=== PATIENT | female | born 1960 | race Caucasian/White ===

== ENCOUNTER → 2019-10-04 13:12 | Outpatient (BNVA) | payer MEDICARE, SELFPAY | PROVIDERS: Visit Provider Podiatrist Foot & Ankle Surgery | DX: M79.671 Pain in right foot (principal); M79.672 Pain in left foot | CPT/HCPCS: 73630 ==

== ENCOUNTER 2020-05-13 14:59 | Outpatient (CLI) | payer MEDICARE, SELFPAY ==
--- NOTE | 2020-05-13 15:08 | US_ITS ---
WS: [id number] ULTRASOUND BREAST LEFT TECHNIQUE: Ultrasound left breast focused area of concern. CLINICAL INFORMATION: BREAST MASS/LUMP @ 10 OCLOCK COMPARISON: None. FINDINGS: Ultrasound left breast area of palpable concern. Ultrasound left breast at the 6:00 position. Normal underlying subcutaneous tissue. Prominent lipomatous tissue in the area of tenderness. No evidence of pathologic mass or lesion. No lesions to target for biopsy. Recommend return to annual screening [facility]. US/US breast LT limited* [id number] IMPRESSION: No suspicious lesions to target for biopsy. Normal underlying breast tissue.
== END 2020-05-13 15:00 | disposition home or self-care (01) ==
PROVIDERS: Visit Provider Nurse Practitioner Family
DX: N63.22 Unspecified lump in the left breast, upper inner quadrant (principal)
CPT/HCPCS: 76642

== ENCOUNTER 2021-01-03 18:03 | Emergency (ER) | payer MEDICARE, SELFPAY ==
[2021-01-03 18:10] VITALS: BP 172/97; PULSE 116; RESP 20; TEMP 36.3; O2SAT 95; BMI 33.6
[2021-01-03 18:18] VITALS: PULSE 125; RESP 21; O2SAT 95
--- NOTE | 2021-01-03 18:18 | W.ED.COVID ---
HPI - COVID General: Chief Complaint: COVID symptoms Stated Complaint: Covid Symptons Time Seen by Provider: 01/03/21 18:17 History of Present Illness: HPI Narrative: 60-year-old female comes in today with complaints of cough and nasal drainage. Patient reports feeling bad since Tuesday. Patient thinks she may have a contracted COVID-19. Patient did have a vaccine back in June for COVID-19 which was a [employer] vaccine. Patient appears mildly unwell but not toxic. Patient appears in no acute distress. COVID 19 common symptoms: positive productive cough, nasal congestion and nausea COVID Results: SARS-CoV-2 Antigen (Rapid) Positive (Negative) H 01/03/21 18:40 01/03/21 Review of Systems General: Reports: 10 or more systems reviewed and unremarkable except in HPI and below ENMT: Reports: nasal congestion and post nasal drip Resp: Reports: productive cough GI: Reports: nausea PFSH ED PFSH: Medical History (Updated 01/03/21 @ 19:54 by ROBIN Garcia) Anxiety Depression Heart problem Surgical History History of appendectomy History of ear surgery History of mandibular surgery Hx of cholecystectomy Hx of foot surgery Hx of tubal ligation Family History Other Heart attack Social History Smoking and tobacco status: never smoked Alcohol intake: current Alcohol intake frequency: holidays/special occasions only Current occupational status: disabled Physical Exam Const: COMMON NORMALS: no acute distress and patient oriented x3 GENERAL APPEARANCE: cooperative HENMT: COMMON NORMALS: normocephalic, TM's normal bilaterally and Normal external nose present HEAD & SCALP: normal to inspection and normocephalic NOSE: Normal external nose present TYMPANIC MEMBRANE: TM's normal bilaterally MOUTH: Normal oral and palatal mucosa present THROAT: posterior oropharynx normal and postnasal drainage Eye: GENERAL EYE: appearance normal, both eyes and all related structures Neck/C-Spine: COMMON NORMALS: full ROM Lymph: LYMPHATIC: no lymphadenopathy noted Chest: COMMONS NORMALS: normal inspection of the chest Resp: COMMON NORMALS: normal respiratory effort EFFORT & INSPECTION: Yes able to speak in complete sentences AUSCULTATION: diminished lung sounds Cardio: COMMON NORMALS: regular rate and regular rhythm RATE: regular rate RHYTHM: regular rhythm GI: COMMON NORMALS: non-tender : COMMON NORMALS: Yes no CVA tenderness BLADDER/KIDNEY EXAM: Yes no CVA tenderness Back/Pelvis: COMMON NORMALS: no CVA tenderness and thoracic and lumbar spine normal to inspection Extremity: COMMON NORMALS: normal to inspection Neuro: COMMON NORMALS: patient oriented x3 and moves all extremities Psych: COMMON NORMALS: mental status grossly normal and cooperative Skin: COMMON NORMALS: no rashes or lesions noted GENERAL SKIN EXAM: no rashes or lesions noted Course Vital Signs: Vital signs: Vital Signs Temperature 97.3 F L 01/03/21 18:10 Pulse Rate 125 H 01/03/21 18:18 Respiratory Rate 21 H 01/03/21 18:18 Blood Pressure 172/97 01/03/21 18:10 Pulse Oximetry 96 01/03/21 19:10 MDM - COVID MDM Narrative: Medical decision making narrative: Patient comes in today with complaints of cough and congestion since Tuesday. Patient has a history of COVID-19 vaccination. Patient reports persistent symptoms and increased fatigue. On exam patient has decreased breath sounds in the bases. Posterior pharyngeal nasal drainage. Skin is warm and dry. Vital signs note some mild tachycardia at 110. Pulse oxygen saturation is in the mid to upper 90s. Differential diagnosis includes COVID-19, pneumonia, viral syndrome. COVID-19 test was negative. Chest x-ray noted some mild patchy infiltrates. CBC noted a white count of 3.0. CRP was slightly elevated at 29. Clinically patient does appear to have COVID-19 pneumonia although the test is negative. We will do a send out PCR COVID-19 test. I will go ahead and cover for pneumonia with azithromycin and dexamethasone. Patient will also be given albuterol inhaler to help with shortness of breath and coughing spells. Prescriptions were written for patient. Patient will continue monitoring pulse oxygen at home. Patient reported understanding of care plan and agreed. Addendum, there was a correction in the COVID-19 test it was changed from negative to positive. Patient agreed to monoclonal antibody therapy and it will be arranged by central scheduling. Lab Data: Labs: Lab Results 09/04/21 09/04/21 09/04/21 Range/Units 18:40 18:40 18:40 WBC 3.0 L (4.0-10.0) 10^3/ uL RBC 4.96 (4.1-5.3) 10^6/u L Hgb 14.9 (11.5-15.3) g/dL Hct 45.3 (37.0-47.0) % MCV 91.3 (81-99) fl MCH 30.0 (28.0-34.0) pg MCHC 32.9 (30.0-36.0) g/dL RDW 12.5 (12.1-15.1) % Plt Count 157 (130-400) 10^3/c mm MPV 9.3 (7.4-10.4) fL Neut % (Auto) 54.4 % Lymph % (Auto) 29.0 % Dauphin % (Auto) 15.7 % Eos % (Auto) 0.3 % Baso % (Auto) 0.3 % Neut # (Auto) 1.63 L (1.8-7.7) 10^3/u L Lymph # (Auto) 0.9 (0.8-4.8) 10^3/u L Da[place]hin # (Auto) 0.5 (0.2-0.9) 10^3/u L Eos # (Auto) 0.0 (0.0-0.8) 10^3/u L Baso # (Auto) 0.0 (0.0-0.1) 10^3/u L Nucleated RBC % (a uto) 0 % Nucleated RBCs # 0.0 /100WBC Sodium 139 (136-145) mmol/L Potassium 4.2 (3.5-5.1) mmol/L Chloride 103 (98-107) mmol/L Carbon Dioxide 23 (22-29) mmol/L Anion Gap 17.2 (5-19) BUN 10 (6-20) mg/dL Creatinine 0.5 (0.5-0.9) mg/dL GFR Calculation 126.7 (90-130) mL/min Glucose 100 (65-115) mg/dL Calculated Osmolal ity 287 (285-295) mOsm/k g Calcium 8.9 (8.5-10.5) mg/dL Total Bilirubin 0.3 (0.15-1.2) mg/dL AST 64 H (0-32) U/L ALT 77 H (0-33) U/L Alkaline Phosphata se 88 (35-105) IU/L C-Reactive Protein 29.4 H (0.0-4.9) mg/L Total Protein 7.5 (6.6-8.7) g/dL Albumin 4.2 (3.5-5.2) g/dL Globulin 3.3 (1.3-4.6) g/dL SARS-CoV-2 Ag (Rap id) Positive H (Negative) COVID Results: SARS-CoV-2 Antigen (Rapid) Positive (Negative) H 01/03/21 18:40 01/03/21 Discharge Plan Discharge Patient Disposition: Home Clinical Impression: Pneumonia due to 2019 novel coronavirus Condition: Stable Prescriptions: New promethazine-DM 6.25-15 mg/5 mL syrup 5 ml PO Q6H PRN (Reason: cough) Qty: 118 RF: 0 dexamethasone 6 mg tablet 6 mg PO DAILY Qty: 5 RF: 0 azithromycin 250 mg tablet 250 mg PO DAILY 4 Days RF: 0 No Action diltiazem HCl 240 mg capsule,extended release 24hr 240 mg PO DAILY RF: 0 omeprazole 20 mg capsule,delayed release(DR/EC) 20 mg PO DAILY RF: 0 aspirin [Adult Aspirin Regimen] 81 mg tablet,delayed release (DR/EC) 81 mg PO DAILY RF: 0 nyubxbmtznu-trmmjncss-odf C-Mn PO RF: 0 calcium carbonate [Calcium 600] 600 mg calcium (1,500 mg) tablet 600 mg PO DAILY RF: 0 ascorbate calcium (vitamin C) 500 mg tablet 500 mg PO DAILY RF: 0 garlic 1,000 mg capsule 1,000 mg PO DAILY RF: 0 multivitamin with iron PO RF: 0 diazepam 5 mg tablet 5 mg PO BID PRNRF: 0 naproxen 250 mg tablet 250 mg PO BID PRNRF: 0 cbd oil as directed RF: 0 melatonin 3 mg capsule 3 mg PO DAILY RF: 0 methylprednisolone [Medrol (Fransisco)] 4 mg tablets,dose pack See Rx Instructions PO PER PKG DIR Qty: 21 RF: 0 Discharge Orders: Discharge ED (Routine); Ordered 01/03/21 Ordered By: Isidro Croft Other Ambulatory Orders: Request for MCA (Routine) Timeframe: 1 Day Facility: [facility] - Location: [facility] Ordered By: Isidro Croft Discharge Diet: Usual diet Discharge Activity: Increase activity as tolerated Patient Instructions: Viral Pneumonia (ED), Opioid Safety Activity Restrictions/Additional Instructions: Drink plenty of water. Use pulse oximetry to monitor pulse oxygen as needed for shortness of breath. If pulse oxygen is below 90% and does not raise above 90% after readjusting device, taking a deep breath and coughing, or standing up and moving around you should be reevaluated. Use albuterol inhaler 2 puffs every 4 hours as needed for cough or shortness of breath. Continue with medications as directed. Follow-up with primary care as needed. We have done a COVID-19 send out swab that will take up to 2 days for results. If those results come back positive you may qualify for monoclonal antibody therapy. Return to the ER to arrange treatment or follow-up with primary care. Return to the ER for worsening symptoms or new concerns. Coding Level of Care Code ED Derivatives Trader for Calli Fwkarri Exam Comprehensive
--- NOTE | 2021-01-03 18:23 | XRR_ITS ---
PROCEDURE INFORMATION: Exam: XR Chest Exam date and time: 01/03/2021 6:23 PM Age: 60 years old Clinical indication: Cough and fever; Additional info: Cough, fever TECHNIQUE: Imaging protocol: XR of the chest. Views: 1 view. COMPARISON: CR Cervical Spine AP/Lat* [id number] 01/28/2014 10:48 AM FINDINGS: Lungs: There are subtle hazy opacities along the peripheral margins of the lungs. Pleural spaces: Unremarkable. No pleural effusion. No pneumothorax. Heart/Mediastinum: Unremarkable. No cardiomegaly. Bones/joints: Unremarkable. XR/XR chest 1V portable [id number] IMPRESSION: Subtle hazy opacities along the peripheral margins of the lungs raise concern for pneumonia. Consider CT scan of the thorax for further evaluation as clinically warranted.
[2021-01-03] MEDS: sodium chloride 0.9% 1,000 ML 999 ML IV (18:25)
--- NOTE | 2021-01-03 18:42 | ECG_ITS ---
[facility] Test Date: 2021-01-03 Pat Name: Ana Guzman Department: Room: Gender: Female Resistor Tester: : 1960 Requested By: Isidro Harley Order Number: [id number] Reading MD: JULIA BROWN Measurements Intervals [place] Rate: 106 P: 28 [place]: 131 QRS: 55 QRSD: 86 T: 38 QT: 323 QTc: 429 Interpretive Statements SINUS TACHYCARDIA ABNORMAL RHYTHM ECG No previous ECG available for comparison Electronically Signed On 01-04-2021 15:05:23 CDT by JULIA BROWN [id number]
[2021-01-03 18:52] LABS: Basophils % 0.3 %; Eosinophils % 0.3 %; Hematocrit 45.3 % (37.0-47.0); Hemoglobin 14.9 g/dL (11.5-15.3); Lymphocytes # 0.9 10^3/uL (0.8-4.8); Mean Corpuscular HGB Conc 32.9 g/dL (30.0-36.0); Mean Corpuscular Volume 91.3 fl (81-99); Mean Platelet Volume 9.3 fL (7.4-10.4); Monocytes # 0.5 10^3/uL (0.2-0.9); Monocytes % 15.7 %; Neutrophils # 1.63 10^3/uL (1.8-7.7); Neutrophils % 54.4 %; Nucleated Red Blood Cells % 0 %; Platelet Count 157 10^3/cmm (130-400); Red Blood Count 4.96 10^6/uL (4.1-5.3); Red Cell Distribution Width 12.5 % (12.1-15.1)
[2021-01-03 19:10] VITALS: O2SAT 96
[2021-01-03 19:20] LABS: Alanine Aminotransferase 77 U/L (0-33); Albumin Level 4.2 g/dL (3.5-5.2); Alkaline Phosphatase 88 IU/L (35-105); Aspartate Amino Transferase 64 U/L (0-32); Blood Urea Nitrogen 10 mg/dL (6-20); C Reactive Protein 29.4 mg/L (0.0-4.9); Calcium 8.9 mg/dL (8.5-10.5); Carbon Dioxide 23 mmol/L (22-29); Chloride 103 mmol/L (98-107); Globulin 3.3 g/dL (1.3-4.6); Glomerular Filtration Rate 126.7 mL/min (90-130); Glucose 100 mg/dL (65-115); Osmolality Calculated 287 mOsm/kg (285-295); Sodium 139 mmol/L (136-145); Total Bilirubin 0.3 mg/dL (0.15-1.2); Total Protein 7.5 g/dL (6.6-8.7)
[2021-01-03 19:22] LABS: Anion Gap 17.2 (5-19); Potassium 4.2 mmol/L (3.5-5.1)
[2021-01-03] MEDS: dexamethasone 10 mg/mL INJ 6 MG IVP (19:37)
[2021-01-03] MEDS: azithromycin 250 mg Tablet 500 MG PO (19:46)
[2021-01-03 19:48] VITALS: PULSE 106; RESP 20; O2SAT 97
[2021-01-03 19:48] LABS: SARS Covid-2 Antigen Positive (Negative)
[2021-01-03] MEDS: albuterol 8 gm MDI 2 PUFF INHALATION (19:48)
[2021-01-03 19:52] VITALS: PULSE 115; RESP 20; O2SAT 97
[2021-01-03 19:58] LABS: Add Urine Microscopic? NO; Charge for UA Resulting for Rev
[2021-01-03 20:04] LABS: Bilirubin Urine Neg (Negative); Blood Urine Neg (Negative); Glucose Urine UA Norm (Normal); Ketones Urine Negative (Negative); Leukocyte Esterase Urine Negative (Negative); Nitrate Urine Negative (Negative); Protein Urine Neg (Negative); Urine Appearance Clear (CLEAR); Urine Color Yellow (Yellow); Urobilinogen Urine Norm (Negative); pH Urine 6.5 (5-7)
[2021-01-05 19:58] LABS: Quest SARS-CoV-2 RNA DETECTED (NOT DETECTED)
== END 2021-01-03 20:10 | disposition home or self-care (01) ==
PROVIDERS: Emergency Provider Nurse Practitioner Family
DX: U07.1 COVID-19 (principal); J12.82 Pneumonia due to coronavirus disease 2019; Z79.82 Long term (current) use of aspirin
CPT/HCPCS: 71045; 80053; 81003; 85025; 86140; 87426; 87635; 93005; 94640; 96361; 96374; 99284; J1100; J3535; J7030; Q0144

== ENCOUNTER 2021-01-06 10:19 | Outpatient (CLI) | payer MEDICARE, SELFPAY ==
[2021-01-06 10:50] VITALS: BP 126/79; PULSE 76; RESP 18; TEMP 36.6; O2SAT 94; BMI 33.6
[2021-01-06 11:15] VITALS: BP 122/75; PULSE 68; RESP 18; O2SAT 93
[2021-01-06 12:15] VITALS: BP 116/75; PULSE 66; RESP 20; TEMP 36.6; O2SAT 94
== END 2021-01-06 10:20 | disposition home or self-care (01) ==
LOC: OPS 10:23
PROVIDERS: Visit Provider Nurse Practitioner Family
DX: U07.1 COVID-19 (principal)
CPT/HCPCS: 96365

== ENCOUNTER 2022-10-05 13:59 | Emergency (ER) | payer MEDICARE, SELFPAY ==
--- NOTE | 2022-10-05 14:09 | ECG_ITS ---
[facility] Test Date: 2022-10-05 Pat Name: Ana Guzman Department: Room: Gender: Female Machine Records Units Supervisor: : 1960 Requested By: Genaro Johnson Order Number: [id number] Juice MD: Gladys Sierra M.D. Measurements Intervals [place] Rate: 82 P: 26 [place]: 133 QRS: 32 QRSD: 82 T: 41 QT: 373 QTc: 436 Interpretive Statements SINUS RHYTHM Compared to ECG 01/03/2021 18:50:21 Sinus tachycardia no longer present Electronically Signed On 10-05-2022 16:49:59 CDT by Gladys Sierra M.D. [email or web address].Intransa/store/Ov/[id number]
[2022-10-05 14:10] VITALS: BP 140/74; PULSE 84; RESP 16; TEMP 36.4; O2SAT 97; BMI 32.5
--- NOTE | 2022-10-05 14:19 | XRR_ITS ---
PROCEDURE INFORMATION: Exam: XR Chest Exam date and time: 10/05/2022 2:25 PM Age: 62 years old Clinical indication: Pain; Angina pectoris; Additional info: Chest pain TECHNIQUE: Imaging protocol: Radiologic exam of the chest. Views: 1 view. COMPARISON: CR XR chest 1V portable [id number] 01/03/2021 6:56 PM FINDINGS: Lungs: Unremarkable. No consolidation. Pleural spaces: Unremarkable. No pleural effusion. No pneumothorax. Heart/Mediastinum: Unremarkable. No cardiomegaly. Bones/joints: Unremarkable. XR/XR chest 1V portable [id number] IMPRESSION: No acute findings.
[2022-10-05 14:39] LABS: Basophils # 0.1 10^3/uL (0.0-0.1); Basophils % 0.8 %; Eosinophils # 0.2 10^3/uL (0.0-0.8); Eosinophils % 2.9 %; Hematocrit 48.4 % (37.0-47.0); Hemoglobin 15.2 g/dL (11.5-15.3); Lymphocytes # 2.2 10^3/uL (0.8-4.8); Lymphocytes % 33.4 %; Mean Corpuscular HGB Conc 31.4 g/dL (30.0-36.0); Mean Corpuscular Hemoglobin 30.8 pg (28.0-34.0); Mean Corpuscular Volume 98.2 fl (81-99); Mean Platelet Volume 9.1 fL (7.4-10.4); Monocytes # 0.8 10^3/uL (0.2-0.9); Monocytes % 11.7 %; Neutrophils # 3.34 10^3/uL (1.8-7.7); Neutrophils % 50.9 %; Nucleated Red Blood Cells % 0 %; Platelet Count 214 10^3/cmm (130-400); Red Blood Count 4.93 10^6/uL (4.1-5.3); White Blood Count 6.6 10^3/uL (4.0-10.0)
[2022-10-05 15:02] LABS: Troponin(5th) Baseline 7 ng/L (0-10)
[2022-10-05 15:04] LABS: Alanine Aminotransferase 27 U/L (0-33); Albumin Level 4.2 g/dL (3.5-5.2); Alkaline Phosphatase 79 U/L (35-105); Anion Gap 19.3 (5-19); Aspartate Amino Transferase 21 U/L (0-32); Blood Urea Nitrogen 9 mg/dL (8-23); Calcium 9.8 mg/dL (8.5-10.5); Carbon Dioxide 21 mmol/L (22-29); Chloride 102 mmol/L (98-107); Globulin 3.5 g/dL (1.3-4.6); Glomerular Filtration Rate 125.9 mL/min (90-130); Glucose 89 mg/dL (65-115); Osmolality Calculated 284 mOsm/kg (285-295); Potassium 4.3 mmol/L (3.5-5.1); Sodium 138 mmol/L (136-145); Total Bilirubin 0.4 mg/dL (0.15-1.2); Total Protein 7.7 g/dL (6.6-8.7)
[2022-10-05 15:45] VITALS: BP 138/82; PULSE 78; TEMP 36.4; O2SAT 98
--- NOTE | 2022-10-05 15:54 | W.ED.CHESTPA ---
HPI - Chest Pain General: Chief Complaint: Chest Pain Stated Complaint: chest pain Time Seen by Provider: 10/05/22 15:54 Source: patient Mode of arrival: ambulatory History of Present Illness: 62-year-old female who presents to the emergency room with complaints of chest pain began around 10:00's morning while she was at rest. States of a pressure-like sensation radiating to her jaw and into her shoulder she describes as originating in the lower chest bilaterally and somewhat the epigastric area she has not really found anything that that exacerbates or relieves it. MD complaint: chest pain Onset (ago): hour(s) Timing of current episode: episodic Prior episodes: Yes Onset: during rest Pain location: left chest, right chest and epigastric Pain radiation: jaw/teeth and left shoulder Severity: moderate Relieving factors: other (aspirin) Exacerbating factors: nothing Associated symptoms: Deny abdominal pain, diaphoresis, dyspnea, fever(s), leg edema, nausea, palpitations, sense of impending doom, syncope or vomiting Review of Systems Const: Denies: fever(s), chills, fatigue, malaise or diaphoresis ENMT: Denies: throat pain, ear or mastoid pain, nasal discharge or nasal congestion Card: Reports: chest pain; Denies: palpitations or syncope Resp: Denies: dyspnea GI: Denies: abdominal pain, nausea or vomiting : Denies: flank pain, difficulty voiding, dysuria, urinary frequency or urinary urgency Skin/Breast: Denies: rash or pruritus PFSH ED PFSH: Medical History (Updated 10/05/22 @ 16:45 by Genaro Clarke DO) Anxiety Depression Heart problem Surgical History History of appendectomy History of ear surgery History of mandibular surgery Hx of cholecystectomy Hx of foot surgery Hx of tubal ligation Family History Other Heart attack Social History Smoking and tobacco status: never smoked Alcohol intake: current Alcohol intake frequency: holidays/special occasions only Substance/Drug Use: never Current occupational status: disabled Physical Exam Const: GENERAL APPEARANCE: cooperative and comfortable ORIENTATION/CONSCIOUSNESS: Yes awake, Yes oriented to person, Yes oriented to place and Yes oriented to time HENMT: COMMON NORMALS: normocephalic, atraumatic and hearing grossly normal bilaterally HEAD & SCALP: normocephalic and atraumatic Resp: COMMON NORMALS: normal respiratory effort, No retractions, No use of accessory muscles and clear to auscultation bilaterally AUSCULTATION: clear to auscultation bilaterally Cardio: COMMON NORMALS: regular rate, regular rhythm and No murmurs present (Cardio) RATE: regular rate RHYTHM: regular rhythm GI: COMMON NORMALS: Soft to palpation and No hepatosplenomegaly present AUSCULTATION: Yes normoactive bowel sounds PALPATION: Yes Soft to palpation, No Tenderness to palpation present (GI), No Guarding due to palpation present (GI) and Yes No hepatosplenomegaly present Extremity: COMMON NORMALS: normal to inspection, capillary refill normal, no clubbing, cyanosis or edema, no calf tenderness and no pedal edema Neuro: SENSORIUM/ORIENTATION: Yes oriented to person, Yes oriented to place and Yes oriented to time Skin: COMMON NORMALS: no rashes or lesions noted GENERAL SKIN EXAM: no rashes or lesions noted Course Vital Signs: Vital signs: Vital Signs Temperature 97.6 F 10/05/22 15:45 Pulse Rate 78 10/05/22 15:45 Respiratory Rate 16 10/05/22 14:10 Blood Pressure 138/82 10/05/22 15:45 Pulse Oximetry 98 10/05/22 15:45 Oxygen Delivery Me thod Room Air 10/05/22 15:45 MDM - Chest Pain Medical Decision Making Cardiac enzymes negative EKG shows no acute changes. Continue baby aspirin daily start isosorbide mononitrate 30 mg daily and we will set up outpatient Lexiscan sestamibi stress test exhilarated avoid exertional activities and recheck with primary care after completed return to the ER if has recurrent symptoms Medical Records I reviewed the patient's medical records. Lab Data I reviewed the patient's lab results. 10/05/22 14:32 10/05/22 14:32 Radiology Impressions Chest X-Ray 10/05/22 14:19 IMPRESSION: No acute findings. Laboratory Results WBC 6.6 10^3/uL (4.0-10.0) 10/05/22 14:32 RBC 4.93 10^6/uL (4.1-5.3) 10/05/22 14:32 Hgb 15.2 g/dL (11.5-15.3) 10/05/22 14:32 Hct 48.4 % (37.0-47.0) H 10/05/22 14:32 MCV 98.2 fl (81-99) 10/05/22 14:32 MCH 30.8 pg (28.0-34.0) 10/05/22 14:32 MCHC 31.4 g/dL (30.0-36.0) 10/05/22 14:32 RDW 12.0 % (12.1-15.1) L 10/05/22 14:32 Plt Count 214 10^3/cmm (130-400) 10/05/22 14:32 MPV 9.1 fL (7.4-10.4) 10/05/22 14:32 Neut % (Auto) 50.9 % 10/05/22 14:32 Lymph % (Auto) 33.4 % 10/05/22 14:32 Johnston % (Auto) 11.7 % 10/05/22 14:32 Eos % (Auto) 2.9 % 10/05/22 14:32 Baso % (Auto) 0.8 % 10/05/22 14:32 Neut # (Auto) 3.34 10^3/uL (1.8-7.7) 10/05/22 14:32 Lymph # (Auto) 2.2 10^3/uL (0.8-4.8) 10/05/22 14:32 Johnston # (Auto) 0.8 10^3/uL (0.2-0.9) 10/05/22 14:32 Eos # (Auto) 0.2 10^3/uL (0.0-0.8) 10/05/22 14:32 Baso # (Auto) 0.1 10^3/uL (0.0-0.1) 10/05/22 14:32 Nucleated RBC % (auto) 0 % 10/05/22 14:32 Nucleated RBCs # 0.0 /100WBC 10/05/22 14:32 Sodium 138 mmol/L (136-145) 10/05/22 14:32 Potassium 4.3 mmol/L (3.5-5.1) 10/05/22 14:32 Chloride 102 mmol/L (98-107) 10/05/22 14:32 Carbon Dioxide 21 mmol/L (22-29) L 10/05/22 14:32 Anion Gap 19.3 (5-19) H 10/05/22 14:32 BUN 9 mg/dL (8-23) 10/05/22 14:32 Creatinine 0.5 mg/dL (0.5-0.9) 10/05/22 14:32 GFR Calculation 125.9 mL/min (90-130) 10/05/22 14:32 Glucose 89 mg/dL (65-115) 10/05/22 14:32 Calculated Osmolality 284 mOsm/kg (285-295) L 10/05/22 14:32 Calcium 9.8 mg/dL (8.5-10.5) 10/05/22 14:32 Total Bilirubin 0.4 mg/dL (0.15-1.2) 10/05/22 14:32 AST 21 U/L (0-32) 10/05/22 14:32 ALT 27 U/L (0-33) 10/05/22 14:32 Alkaline Phosphatase 79 U/L (35-105) 10/05/22 14:32 Troponin T Baseline 7 ng/L (0-10) 10/05/22 14:32 Troponin T 120 Minute 6.31 ng/L (0-10) 10/05/22 16:07 Total Protein 7.7 g/dL (6.6-8.7) 10/05/22 14:32 Albumin 4.2 g/dL (3.5-5.2) 10/05/22 14:32 Globulin 3.5 g/dL (1.3-4.6) 10/05/22 14:32 Discharge Plan Discharge Patient Disposition: Home Clinical Impression: Atypical chest pain Condition: Stable Prescriptions: New isosorbide mononitrate 30 mg tablet extended release 24 hr 30 mg PO DAILY Qty: 30 0RF No Action diltiazem HCl 240 mg capsule,extended release 24hr 240 mg PO DAILY omeprazole 20 mg capsule,delayed release(DR/EC) 20 mg PO DAILY aspirin [Adult Aspirin Regimen] 81 mg tablet,delayed release (DR/EC) 81 mg PO DAILY [id number] C-Mn PO calcium carbonate [Calcium 600] 600 mg calcium (1,500 mg) tablet 600 mg PO DAILY ascorbate calcium (vitamin C) 500 mg tablet 500 mg PO DAILY garlic 1,000 mg capsule 1,000 mg PO DAILY multivitamin with iron PO diazepam 5 mg tablet 5 mg PO BID PRN naproxen 250 mg tablet 250 mg PO BID PRN cbd oil as directed melatonin 3 mg capsule 3 mg PO DAILY methylprednisolone [Medrol (Fransisco)] 4 mg tablets,dose pack See Rx Instructions PO PER PKG DIR Qty: 21 0RF Rx Instructions: PO PER PKG DIR promethazine-DM 6.25-15 mg/5 mL syrup 5 ml PO Q6H PRN (Reason: cough) Qty: 118 0RF dexamethasone 6 mg tablet 6 mg PO DAILY Qty: 5 0RF Discharge Orders: Discharge ED (Routine); Ordered 10/05/22 Ordered By: Genaro Clarke Referrals: Spencer Guy DO [Primary Care Provider] - Discharge Diet: Usual diet Discharge Activity: Limit activity as instructed Patient Instructions: Opioid Safety, Pain Management Activity Restrictions/Additional Instructions: You are seen in the emergency room for episode of chest pain. Your EKG and cardiac enzymes are negative. Case management make arrangements for you to have a outpatient Lexiscan sestamibi stress test. In addition continue taking baby aspirin daily. Also start isosorbide mononitrate 30 mg once a day. Avoid any exertional activity and follow-up with your primary care doctor after the stress test is completed. Coding Level of Care Code ED Clinic Licensed Practical Nurse for Calli Presley
[2022-10-05 16:31] LABS: Troponin 5 2HR 6.31 ng/L (0-10)
--- NOTE | 2022-10-05 16:42 | ECG_ITS ---
[facility] Test Date: 2022-10-05 Pat Name: Ana Guzman Department: Room: Gender: Female Foundry Supervisor: : 1960 Requested By: Shayna Walden Order Number: [id number] Juice MD: Gladys Sierra M.D. Measurements Intervals [place] Rate: 74 P: 29 SC: 133 QRS: 43 QRSD: 80 T: 36 QT: 382 QTc: 425 Interpretive Statements SINUS RHYTHM LOW QRS VOLTAGE IN PRECORDIAL LEADS [QRS DEFLECTION < 1.0 mV IN CHEST LEADS] Compared to ECG 10/05/2022 14:09:03 Low QRS voltage now present Electronically Signed On 10-05-2022 16:51:53 CDT by Gladys Sierra M.D. [id number]
[2022-10-05 16:49] VITALS: BP 151/72; PULSE 76; RESP 16; O2SAT 96
[2022-10-05 17:02] LABS: Troponin 5 2HR Delta -0.69 ABS# (0-10)
[2022-10-05 17:09] VITALS: BP 140/94; PULSE 100; RESP 14; O2SAT 97
--- NOTE | 2022-10-06 08:31 | DCPLANNER ---
Addendum entered by Lani Cordero 11/05/22 10:20: Patient had an outpatient stress test - patient attended the test. Addendum entered by Lani Cordero 10/12/22 10:34: Patient has an outpatient stress test scheduled for Wednesday, October 26, 2022 at 9:45 Original Note: internal communications manager had message to schedule an outpatient stress test for patient. internal communications manager faxed signed order to centralized scheduling, who will call patient with appointment information.
== END 2022-10-05 17:11 | disposition home or self-care (01) ==
PROVIDERS: Physician Assistant; Emergency Provider Family Medicine; PCP Electrodiagnostic Medicine
DX: R07.89 Other chest pain (principal)
CPT/HCPCS: 36415; 71045; 80053; 84484; 85025; 93005; 99285

== ENCOUNTER 2022-10-26 09:30 | Outpatient (CLI) | payer MEDICARE, SELFPAY ==
--- NOTE | 2022-10-26 | ECG_ITS ---
[facility] Test Date: 2022-10-26 Pat Name: Ana Guzman Department: Room: Gender: Female Clinic Office Assistant: Nahomy Paredes : 1960 Requested By: Genaro Johnson Order Number: [id number] Juice MD: Delroy Morocho M.D. Interpretive Statements NAME OF STUDY: LEXISCAN SESTAMIBI STRESS TEST INDICATION: [Chest Pain, ] Procedure: At the baseline, the blood pressure was 157/96 mmHg with a heart rate of 76 bpm. The electrocardiogram showed normal sinus rhythm, normal axis with normal ST and T's. The Lexiscan was infused over a period of 20 seconds. A total of 0.4 mg of Lexiscan was infused. The stress phase was continued for a total of 5 minutes. Heart rate was at the end of stress phase was 97 bpm and a blood pressure of 126/87 mmHg. The EKG at the peak infusion revealed normal sinus rhythm with no significant ST-T wave changes. Sestamibi was injected 20 seconds after the Lexiscan infusion. Blood pressure at the end of recovery phase was 139/78 mmHg with a heart rate of 93 bpm. Conclusion: 1. Normal EKG response to Lexiscan infusion 2. No Lexiscan induced chest pain or cardiac arrhythmia. 3. Normal blood pressure and heart rate response. 4. Sestamibi/sestamibi perfusion scan pending; see separate report. Electronically Signed On 10-30-2022 14:40:29 CDT by Delroy Morocho M.D. [id number]
[2022-10-26 09:41] VITALS: BMI 32.8
--- NOTE | 2022-10-26 09:44 | NMCV_ITS ---
NM lamont perf SPECT r/s* [id number] Ana Guzman Age: 62 Gender: F : 1960 Exam Date: 10/26/2022 10:43 Ordering Phys: Genaro Clarke DO Technologist: BRADY Trujillo Exam Location: [facility] Indications: CHEST PAIN STRESS TEST [facility] IMAGE PROTOCOL Rest/Stress 1 Lexiscan Day Radiopharmaceutical Dose (mCi) Administration Site Administered by Rest: Tc-99m 10.9 IV BRADY Ibrahim Sestamibi Stress:Tc-99m 32.8 IV BRADY Ibrahim Sestamibi Rest: 26-Oct-2022 60 Discovery 630 Stress: 26-Oct-2022 30 Discovery 630 0.4mg Lexiscan. Images obtained in supine and prone position. SPECT RESULTS Technical Quality: Excellent Raw Data Analysis: Normal Image Corrections: No attenuation or motion correction applied Summed Stress Score: 2 Summed Rest Score: 0 Summed Difference Score: 2 PERFUSION FINDINGS There is a small sized area of reversible perfusion defect noted in apical lateral and inferolateral madrigal. This is consistent with small sized area of ischemia in left circumflex artery territory FUNCTIONAL RESULTS (calculated via Gated SPECT) Stress Image LV EF (%): 90 Stress EDV (mL):63 TID: 1.03 Stress ESV (mL):6 FUNCTIONAL FINDINGS: There is normal left ventricular systolic function. IMPRESSIONS 1. Small area of reversible perfusion defect noted in circumflex artery territory. 2. LV systolic function is normal Delroy Morocho MD (Electronically Signed) Final Date: 26 October 2022 17:23 S
[2022-10-26] MEDS: regadenoson 0.4 Mg/5 ml Syringe IVP (11:22)
[2022-10-26 11:35] VITALS: BP 139/78; PULSE 91
== END 2022-10-26 09:31 | disposition home or self-care (01) ==
LOC: CDL 09:31
PROVIDERS: PCP Electrodiagnostic Medicine; Visit Provider Family Medicine
DX: R07.9 Chest pain, unspecified (principal); R94.39 Abnormal result of other cardiovascular function study
CPT/HCPCS: 36415; 78452; 93017; 96374; A9500; J2785

== ENCOUNTER → 2023-01-04 14:41 | Outpatient (BNVA) | payer MEDICARE, SELFPAY | PROVIDERS: PCP Electrodiagnostic Medicine; Visit Provider Internal Medicine | DX: R07.9 Chest pain, unspecified (principal); R94.39 Abnormal result of other cardiovascular function study; I10 Essential (primary) hypertension | CPT/HCPCS: 93005; 99204 ==

== ENCOUNTER 2023-01-07 10:53 | Outpatient (CLI) | payer MEDICARE, SELFPAY ==
[2023-01-07 11:22] LABS: Basophils # 0.1 10^3/uL (0.0-0.1); Basophils % 0.9 %; Eosinophils # 0.3 10^3/uL (0.0-0.8); Eosinophils % 3.8 %; Hematocrit 41.1 % (36-47); Lymphocytes # 1.9 10^3/uL (0.8-4.8); Lymphocytes % 29.3 %; Mean Corpuscular HGB Conc 33.6 g/dL (30-55); Mean Corpuscular Hemoglobin 31.1 pg (27-33); Mean Corpuscular Volume 92.6 fl (85-98); Mean Platelet Volume 9.4 fL (7.4-10.4); Monocytes # 0.6 10^3/uL (0.2-0.9); Neutrophils # 3.74 10^3/uL (1.8-7.7); Neutrophils % 56.7 %; Nucleated Red Blood Cells % 0 %; Platelet Count 239 10^3/cmm (157-399); Red Blood Count 4.44 10^6/uL (3.85-5.65); Red Cell Distribution Width 12.6 % (12.1-15.1); White Blood Count 6.59 10^3/uL (3.29-11.43)
[2023-01-07 11:43] LABS: INR 0.95 (0.83-1.21)
[2023-01-07 11:44] LABS: Anion Gap 13.9 (5-19); Blood Urea Nitrogen 10 mg/dL (8-23); Calcium 9.4 mg/dL (8.5-10.5); Carbon Dioxide 29 mmol/L (22-29); Chloride 106 mmol/L (98-107); Glomerular Filtration Rate 125.9 mL/min (90-130); Glucose 112 mg/dL (65-115); Osmolality Calculated 298 mOsm/kg (285-295); Potassium 4.9 mmol/L (3.5-5.1); Sodium 144 mmol/L (136-145)
== END 2023-01-07 10:54 | disposition home or self-care (01) ==
LOC: LAB 10:55
PROVIDERS: PCP Electrodiagnostic Medicine; Visit Provider Internal Medicine
DX: I10 Essential (primary) hypertension (principal); R07.9 Chest pain, unspecified; R94.39 Abnormal result of other cardiovascular function study; R58 Hemorrhage, not elsewhere classified
CPT/HCPCS: 36415; 80048; 85025; 85610

== ENCOUNTER 2023-01-10 09:04 | Outpatient (CLI) | payer MEDICARE, SELFPAY ==
[2023-01-10] VITALS (29 sets, daily range): BP systolic 103–145; BP diastolic 60–90; PULSE 64–76; RESP 10–22; TEMP 36.9; O2SAT 95–98; BMI 32.1
--- NOTE | 2023-01-10 09:00 | XACV_ITS ---
Exam Room: 2 Ht: 160 cm Wt: 82 kg BSA: 1.94 m2 Gender: Female : 1960 Exam Priority: Routine Procedure(s): Procedure Description: Diagnostic procedure Procedure Description: Left Heart Catheterization Procedure Description: Left ventriculography Procedure Description: Coronary Angiography Diagnostic Cath Status: Elective Diagnostic Findings * INDICATION: Chest pain/abnormal stress test. * No significant disease noted in the Left Main, Left Anterior Descending, Right, or Circumflex coronary arteries. * Coronary angiography shows right dominance. Conclusions 1. No significant disease noted in the Left Main, Left Anterior Descending, Right, or Circumflex coronary arteries. Recommendations * Aggressive risk factor modification. * Outpatient cardiology follow up in 4 weeks. Interventional RX Recommendation: medical therapy and/or counseling Diagnostic RX Recommendation: medical therapy and/or counseling Pressures Phase:Rest AO : 175 / 91 ( 118 ) @ 11:12:00 AM 134 / 73 ( 100 ) @ 11:16:00 AM 135 / 71 ( 101 ) @ 11:16:00 AM LV : 142 / -7 / 13 @ 11:15:00 AM 133 / -13 / 10 @ 11:16:00 AM 138 / -14 / 10 @ 11:16:00 AM Valves Phase:DefaultPhase AV : 4.0 @ 10:57:55 AM 4.0 @ 10:57:55 AM AV Mean Gradient: 11.0 @ 10:57:55 AM 11.0 @ 10:57:55 AM Clinical Evaluation EBL: 5mL-10mL Procedural Details Procedure Consent Obtained. Pre-Procedure Time Out. Identified patient by full name and date of as verbalized by the patient/guarantor. Does the consent match the physician's order: Yes. Accurate & Complete Informed Consent: Yes. Inpatient/Outpatient History & Physical on Chart: Yes. If H&P is completed, is and addenduem needed: No. Visualize and Verify Site with Patient/Guarantor: N/A. Relevant Radiology Images available: Yes. The risks, benefits, and alternatives of sedation and/or procedure were discussed by physician. The patient agrees to continue. Procedure started. [facility] Clinical Fraility Score: 3: Managing Well. Speech Pathology Teacher Indications: chest pressure/abnormal stress test. Chest Pain Symptom Assessment: Typical Angina Symptoms. Cardiovascular Instability: No. Correct patient, site and procedure confirmed by cath team. PERRLA. Strong, equal hand slate handler bilaterally. Lungs clear x 5 lobes. IV Site on Arrival: 20 gauge in the right anticubital. A 20 gauge IV was started in the right anticubital using aseptic technique. IV Fluids: 0.9% NaCl at KVO. 0 mL infused prior to clinical laboratory director. Pre Procedural Pulses: bilateral dorsalis pedis was 3+. Pre Procedural Pulses: bilateral posterior tibial was 3+. Pre Procedural Pulses: bilateral radial was 3+. Oxygen started at 2liters/min via nasal canula. right groin was prepped with chloroprep then draped in the usual sterile fashion. right radial was prepped with chloroprep then draped in the usual sterile fashion. Physician notified. Baseline sample Acquired. HR: 58 BPM. Patient's family in CPRU room #3. Dr. Morocho will update at the completion of the procedure. Equipment: 5F - Radial. Cardiac Cath Pack. ACIST Manifold Kit Model BT 2000. Heparinized Saline (2 units/mL), 1000 mL bag. Inventory is [facility] 5Fr [facility]. Physician arrived. Physician scrubbed in. Immediate Pre-Procedure Time Out. Correct Patient: Yes; Correct Procedure: Yes; Correct Site: Yes; Correct Patient Position: Yes; Correct Supplies: Yes; Dried Flammable Prep: Yes; Blood Products Available: N/A;. Lidocaine 1% infiltrated to the right radial. Unable to obtain radial access. MD attempting to gain access in the Femoral artery. Lidocaine 1% infiltrated to the right groin. Arterial access obtained with micropuncture set using ultrasound guidance. A 5 cymro JL4 catheter in over the standard J wire. Multiple views taken of left coronary artery. Catheter removed over the standard J wire. A 5 cymro JR4 catheter in over the standard J wire. Multiple views taken of right coronary artery. Catheter removed over the standard J wire. EDP Sample taken: LV 142/-8,13; HR: 75 BPM; SpO2: 98%. LV gram performed in GO @ 10 mL/second for a total of 30 mL. EDP Sample taken: LV 133/-14,10; HR: 79 BPM; SpO2: 98%. Pullback taken: LV 138/-15,10; AO 134/73(100); Mean: 11mmHg, Peak to Peak: 4mmHg, SEP: 21sec/min; HR: 77 BPM; SpO2: 98%. Catheter removed over the standard J wire. A Right femoral angiogram was performed to determine safe placement of closure device. A Angio-Seal VIP ([facility]) was successful obtaining hemostatsis at the Right Femoral artery insertion site. Angioseal placed without complications. No signs or symptoms of hematoma noted. Sterile dressing applied per usual sterile fashion. Lot [id number]. Exp. 06/01/2023. Post Procedure: Pulses reassessed and unchanged. PERRLA. Strong, equal hand slate handler bilaterally. No VTE prophylaxis required. Medication's Wasted: Nitro = 50 mg. Medication's Wasted: Heparin = 1000 Units. Medication's Wasted: Other = Morphine 1 mg. Medication's Wasted: Other = Versed 1 mg. Total IV fluids: 43 mL. Post-op diagnosis: Normal coronaries. Complications: none. Estimated blood loss: 5mL-10mL. Responsiveness - Normal response to verbal stimuli; alert and oriented, PERRLA. Airway - Unaffected, no intervention required; spontaneous ventilation. Circulation: W/N/L, pulses unchanged. Nausea/Vomiting: No. Vital chart was stopped. Procedure completed. Patient transferred by bed to CPRU. Access Site Site: Right Femoral artery Sheath Size: 6 Fr Hemostasis Method: Angio-Seal VIP ([facility]) Hemostasis Success: Successful Procedure Medications Start: 9:53 AM Stop: 9:53 AM Medication: Versed Amount: 1 mg Route: I.V. Start: 9:57 AM Stop: 9:57 AM Medication: Versed Amount: 1 mg Route: I.V. Start: 10:05 AM Stop: 10:05 AM Medication: Versed Amount: 1 mg Route: I.V. Start: 10:07 AM Stop: 10:07 AM Medication: Morphine Amount: 1 mg Route: I.V. Start: 10:21 AM Stop: 10:21 AM Medication: Morphine Amount: 1 mg Route: I.V. I, the attending physician, have reviewed and verified all procedure medications. Yes, all medications given per verbal order History/Risk Factors Hypertension: Yes Dyslipidemia: No Peripheral Arterial Disease (PAD): No Myocardial Infarction ([place]): No Obesity: Yes Renal Disease: No Tobacco Use: Never Prior Interventions PCI: No CABG: No Valve Surgery: No Report Signatures Finalized by Delroy Morocho MD on 01/22/2023 02:02 PM
[2023-01-10] MEDS: aspirin 325 mg Tablet PO (09:15)
[2023-01-10] MEDS: diphenhydrAMINE 50 mg Capsule PO (09:15)
--- NOTE | 2023-01-10 09:46 | W.PM.OPSUD ---
Surgery/Procedure H&P Update DATE OF PROCEDURE: January 10, 2023 DATE H&P PERFORMED: 01/04/23 H&P UPDATE INFORMATION: I have reviewed H&P completed within last 30 days, I have examined patient prior to procedure and No changes to prior documentation PREOP DIAGNOSIS: Chest pain/abnormal stress test PRIMARY INDICATION FOR PROCEDURE: Chest pain/abnormal stress test PLANNED PROCEDURE: Operation Date: 01/10/23 10:00 Proposed Procedures p [facility] [id number],R94.39,R07.9(Left) - Delroy Morocho M.D Possible percutaneous coronary intervention PATIENT REASSESSED PRIOR TO SEDATION, WITH NO CHANGE NOTED: Yes PHYSICAL EXAM: alert, oriented x 3, clear to auscultation bilaterally and regular rate & rhythm AIRWAY EVAL/ANESTHESIA PLAN: normal airway, ASA III, Local Anesthesia, Risks, benefits & alternatives of sedation and/or procedure discussed and Patient agrees to continue as planned ADDITIONAL INFORMATION: Moderate sedation
--- NOTE | 2023-01-10 10:30 | SUR.EXTENDED ---
Received the patient back from the aquatic laborer via bed s/p Diagnostic C. Patient drowsy. Awakens to verbal stimuli. A & 0 x 3. color television console monitor placed and vital signs obtained. S/P angioseal closure to right groin. No bleeding or hematoma noted. Dressing D/I. No other assessment changes noted from pre cath assessment. Will transfer to room 105 when bed becomes available. Bedrest x 4 hours. Family at bedside. No concerns voiced at this time.
--- NOTE | 2023-01-10 13:26 | SUR.EXTENDED ---
Report called to ARTHUR Shah. Will transfer to room 105 as soon as the patient is finished with the bedpan.
--- NOTE | 2023-01-10 17:27 | PC.NURSE ---
Discharge Note Patient discharged to [home] via [w/c to POV] accompanied by [spouse]. Discharge instructions reviewed with patient and/or agricultural sales representative. Mobile pharmacy medications and/or prescriptions provided. Belongings/home medications returned.
== END 2023-01-10 17:27 | disposition home or self-care (01) ==
LOC: CCL 09:05 → CSU 12:23
PROVIDERS: PCP Electrodiagnostic Medicine; Visit Provider Internal Medicine
DX: R07.9 Chest pain, unspecified (principal); R94.39 Abnormal result of other cardiovascular function study; I10 Essential (primary) hypertension; E66.9 Obesity, unspecified; Z68.32 Body mass index [BMI] 32.0-32.9, adult; Z82.49 Family history of ischemic heart disease and other diseases of the circulatory system; Z79.82 Long term (current) use of aspirin
CPT/HCPCS: 36415; 93458; 96361; 96365; 99152; 99153; C1760; C1769; C1887; C1894; G0378; J1644; J2250; J2270; J3490; J7030; Q0163; Q9967

== ENCOUNTER 2023-01-12 20:52 | Emergency (ER) | payer MEDICARE, SELFPAY ==
[2023-01-12 21:02] VITALS: BP 155/94; PULSE 100; RESP 20; TEMP 36.6; O2SAT 97; BMI 32.2
[2023-01-12 21:30] VITALS: BP 143/83; PULSE 95; O2SAT 97
--- NOTE | 2023-01-12 21:39 | USR_ITS ---
PROCEDURE INFORMATION: Exam: US Right Non-Vascular Joint or Other Extremity Structure Exam date and time: 01/12/2023 10:03 PM Age: 62 years old Clinical indication: Thigh; Right; Patient HX: Severe RT groin pain with fever and chills S/P coronary angiogram 01/10/23. There is no palpable lump and there is no thrill. ; Additional info: Severe right groin pain sp angiogram, fever, chills TECHNIQUE: Imaging protocol: Right US joint or other nonvascular extremity structure or structures. Real-time ultrasound with image documentation. Limited study. Exam focused on the lower extremity in the region of clinical interest. COMPARISON: [place] [id number] ORTH 10/04/2019 1:16 PM FINDINGS: Soft tissues: Unremarkable. No loculated collections. Vasculature: Right common femoral, superficial femoral and popliteal veins demonstrate color blood flow, compressibility and augmentation. Right common femoral artery demonstrates color blood flow within normal triphasic wave forms. US/[place] [id number] IMPRESSION: Negative for vascular abnormality, pseudoaneurysm or arteriovenous fistula.
[2023-01-12 21:42] LABS: Basophils % 0.4 %; Eosinophils # 0.3 10^3/uL (0.0-0.8); Eosinophils % 2.6 %; Hematocrit 42.5 % (36-47); Lymphocytes # 2.4 10^3/uL (0.8-4.8); Lymphocytes % 23.9 %; Mean Corpuscular HGB Conc 32.7 g/dL (30-55); Mean Corpuscular Hemoglobin 30.9 pg (27-33); Mean Corpuscular Volume 94.4 fl (85-98); Mean Platelet Volume 10.5 fL (7.4-10.4); Monocytes % 10.2 %; Neutrophils # 6.33 10^3/uL (1.8-7.7); Neutrophils % 62.6 %; Nucleated Red Blood Cells % 0 %; Platelet Count 209 10^3/cmm (157-399); Red Cell Distribution Width 12.4 % (12.1-15.1); White Blood Count 10.11 10^3/uL (3.29-11.43)
--- NOTE | 2023-01-12 21:42 | W.ED.FEVER ---
HPI - Fever General: Chief Complaint: Fever Stated Complaint: right leg pain, fever Time Seen by Provider: 01/12/23 21:33 History of Present Illness: Patient presents to the ER with right leg pain and fever. Patient had an angiogram on Tuesday where the cannulated the artery in the right groin region. This area is very tender and the pain goes distally down to the back of her knee. The area looks good with minimal bruising however patient can barely tolerate light touching to this area. Patient also had a temperature of 100.4 today at her home. Patient had a temperature of 97.8 upon arrival here. Patient did take low-dose aspirin approximately 40 minutes ago. Patient denies any nausea vomiting diarrhea chest pain shortness of breath at this time. Review of Systems General: Reports: 10 or more systems reviewed and unremarkable except in HPI and below PFSH ED PFSH: Medical History (Updated 01/13/23 @ 01:25 by Collin Garcia DO) Anxiety Depression Heart problem Surgical History History of appendectomy History of ear surgery History of mandibular surgery Hx of cholecystectomy Hx of foot surgery Hx of tubal ligation Family History Other Heart attack Social History Smoking and tobacco status: never smoked Alcohol intake: current Alcohol intake frequency: holidays/special occasions only Substance/Drug Use: never Current occupational status: disabled Physical Exam Const: COMMON NORMALS: no acute distress, average body habitus, patient oriented x3, no limitations, healthy appearing, alert and well nourished HENMT: COMMON NORMALS: normocephalic, atraumatic, hearing grossly normal bilaterally, external ears normal, Normal external nose present and moist oral mucous membranes HEAD & SCALP: normocephalic and atraumatic NOSE: Normal external nose present EXTERNAL EAR: Yes external ears normal Eye: COMMON NORMALS: Equal, round and reactive pupils present, EOMs intact bilaterally, conjunctivae normal and no scleral icterus CONJUNCTIVA: Yes conjunctivae normal PUPIL: Yes Equal, round and reactive pupils present Neck/C-Spine: COMMON NORMALS: no JVD Lymph: LYMPHATIC: no lymphadenopathy noted Chest: COMMONS NORMALS: normal inspection of the chest and normal palpation of entire chest wall Resp: COMMON NORMALS: normal respiratory effort, No retractions, No use of accessory muscles and clear to auscultation bilaterally AUSCULTATION: clear to auscultation bilaterally Cardio: COMMON NORMALS: no JVD, regular rate, regular rhythm, S1 normal heart sound present, S2 normal heart sound present, No gallops present (Cardio), No clicks present (Cardio), No murmurs present (Cardio) and No rub (Cardio) RATE: regular rate RHYTHM: regular rhythm HEART SOUNDS: S1 normal heart sound present and S2 normal heart sound present GI: COMMON NORMALS: Normal to inspection, nondistended, normoactive bowel sounds present, Soft to palpation, non-tender, No hepatosplenomegaly present and no masses PALPATION: Yes Soft to palpation and Yes No hepatosplenomegaly present : OTHER: Bandage was removed from left groin region cath site. Externally looks good with minimal bruising. But patient is very exquisitely tender to light palpation in this area Neuro: COMMON NORMALS: patient oriented x3 SENSORIUM/ORIENTATION: Yes alert Course Vital Signs: Vital signs: Vital Signs Temperature 97.8 F 01/12/23 21:02 Pulse Rate 78 01/12/23 23:30 Respiratory Rate 20 H 01/12/23 21:02 Blood Pressure 138/72 01/12/23 23:30 Pulse Oximetry 96 01/12/23 23:30 Oxygen Delivery Me thod Room Air 01/12/23 23:30 MDM - Fever Medical Decision Making Patient presents ER today for evaluation of right leg pain and fever. Patient had angiogram on Tuesday. Has been hurting in her right groin ever since then. Ultrasound was performed of this area which was negative as well as lab work which was negative as well. Patient be discharged home with diagnosis of fever and right leg pain. Patient should follow-up with her family practice doctor in approximately 7 days or sooner as needed. Differential Diagnosis Unlikely abdominal pain, acute appendicitis, calculus of kidney, constipation, diverticulitis, endometriosis, gastroenteritis, pancreatitis or small bowel obstruction Medical Records I reviewed the patient's medical records. Lab Data I reviewed the patient's lab results. 01/12/23 21:29 01/12/23 21:29 Radiology Impressions Soft Tissue Ultrasound 01/12/23 21:39 IMPRESSION: Negative for vascular abnormality, pseudoaneurysm or arteriovenous fistula. Laboratory Results WBC 10.11 10^3/uL (3.29-11.43) 01/12/23: RBC 4.50 10^6/uL (3.85-5.65) 01/12/23 21: Hgb 13.90 g/dL (11.27-16.99) 01/12/23 21: Hct 42.5 % (36-47) 01/12/23 21: MCV 94.4 fl (85-98) 01/12/23 21: MCH 30.9 pg (27-33) 01/12/23 21: MCHC 32.7 g/dL (30-55) 01/12/23: RDW 12.4 % (12.1-15.1) 01/12/23: Plt Count 209 10^3/cmm (157-399) 01/12/23: MPV 10.5 fL (7.4-10.4) H 01/12/23 21: Neut % (Auto) 62.6 % 01/12/23 21: Lymph % (Auto) 23.9 % 01/12/23 21: Crane % (Auto) 10.2 % 01/12/23: Eos % (Auto) 2.6 % 01/12/23: Baso % (Auto) 0.4 % 01/12/23: Neut # (Auto) 6.33 10^3/uL (1.8-7.7) 01/12/23: Lymph # (Auto) 2.4 10^3/uL (0.8-4.8) 01/12/23: [place]ane # (Auto) 1.0 10^3/uL (0.2-0.9) H 01/12/23: Eos # (Auto) 0.3 10^3/uL (0.0-0.8) 01/12/23: Baso # (Auto) 0.0 10^3/uL (0.0-0.1) 01/12/23: Nucleated RBC % (auto) 0 % 01/12/23: Nucleated RBCs # 0.0 /100WBC 01/12/23 21:29 Sodium 142 mmol/L (136-145) 01/12/23 21:29 Potassium 4.2 mmol/L (3.5-5.1) 01/12/23 21: Chloride 106 mmol/L (98-107) 01/12/23 21: Carbon Dioxide 26 mmol/L (22-29) 01/12/23 21: Anion Gap 14.2 (5-19) 01/12/23 21: BUN 15 mg/dL (8-23) 01/12/23 21: Creatinine 0.5 mg/dL (0.5-0.9) 01/12/23 21: GFR Calculation 125.9 mL/min (90-130) 01/12/23 21: Glucose 102 mg/dL (65-115) 01/12/23 21: Calculated Osmolality 295 mOsm/kg (285-295) 01/12/23: Calcium 9.5 mg/dL (8.5-10.5) 01/12/23: Total Bilirubin 0.3 mg/dL (0.15-1.2) 01/12/23 21: AST 13 U/L (0-32) 01/12/23 21: ALT 17 U/L (0-33) 01/12/23 21: Alkaline Phosphatase 92 U/L (35-105) 01/12/23 21: Total Protein 7.8 g/dL (6.6-8.7) 01/12/23 21: Albumin 4.5 g/dL (3.5-5.2) 01/12/23 21: Globulin 3.3 g/dL (1.3-4.6) 01/12/23 21:29 Urine Color Colorless (Yellow) 01/12/23 21:53 Urine Appearance Clear (CLEAR) 01/12/23 21:53 Urine pH 7 (5-7) 01/12/23 21:53 Ur Specific [place] 1.010 (1.005-1.030) 01/12/23 21:53 Urine Protein Neg (Negative) 01/12/23 21:53 Urine Glucose (UA) Norm (Normal) 01/12/23 21:53 Urine Ketones Negative (Negative) 01/12/23 21:53 Urine Blood Neg (Negative) 01/12/23 21:53 Urine Nitrate Negative (Negative) 01/12/23 21:53 Urine Bilirubin Neg (Negative) 01/12/23 21:53 Urine Urobilinogen Neg mg/dL (Negative) 01/12/23 21:53 Ur Leukocyte Esterase Negative (Negative) 01/12/23 21:53 Coronavirus 229E (PCR) Not detected (NOT DETECT) 01/12/23 21:32 SARS-CoV-2 (PCR) Not detected (NOT DETECT) 01/12/23 21:32 Discharge Plan Discharge Patient Disposition: Home Clinical Impression: Acute pain of right lower extremity Fever Qualifiers: Fever type: unspecified Qualified Code(s): R50.9 - Fever, unspecified Condition: Stable Prescriptions: No Action diltiazem HCl 240 mg capsule,extended release 24hr 240 mg PO DAILY omeprazole 20 mg capsule,delayed release(DR/EC) 20 mg PO DAILY aspirin [Adult Aspirin Regimen] 81 mg tablet,delayed release (DR/EC) 81 mg PO DAILY [id number] C-Mn 1 tab PO DAILY calcium carbonate [Calcium 600] 600 mg calcium (1,500 mg) tablet 600 mg PO DAILY ascorbate calcium (vitamin C) 500 mg tablet 500 mg PO DAILY multivitamin with iron 1 tab PO DAILY diazepam 5 mg tablet 5 mg PO BID PRN (Reason: Sleep) cbd oil cream 1 % topical DIRECTED melatonin 3 mg capsule 3 mg PO DAILY dexamethasone 6 mg tablet 6 mg PO DAILY Qty: 5 0RF Discharge Orders: Discharge ED (Routine); Ordered 01/13/23 Ordered By: Collin Garcia Referrals: Spencer Guy, [Primary Care Provider] - 1 week Patient Instructions: Fever in Adults (ED), Leg Pain (ED) Activity Restrictions/Additional Instructions: Please take Tylenol and/or Motrin as needed as directed for the fever and pain. Please follow-up with your family practice doctor within the next 7 days or sooner for further evaluation and treatment as needed. Coding Level of Care Code ED Gre Instructor for Calli Presley
[2023-01-12 21:56] LABS: Alanine Aminotransferase 17 U/L (0-33); Albumin Level 4.5 g/dL (3.5-5.2); Alkaline Phosphatase 92 U/L (35-105); Anion Gap 14.2 (5-19); Aspartate Amino Transferase 13 U/L (0-32); Blood Urea Nitrogen 15 mg/dL (8-23); Calcium 9.5 mg/dL (8.5-10.5); Carbon Dioxide 26 mmol/L (22-29); Chloride 106 mmol/L (98-107); Globulin 3.3 g/dL (1.3-4.6); Glomerular Filtration Rate 125.9 mL/min (90-130); Glucose 102 mg/dL (65-115); Osmolality Calculated 295 mOsm/kg (285-295); Potassium 4.2 mmol/L (3.5-5.1); Sodium 142 mmol/L (136-145); Total Bilirubin 0.3 mg/dL (0.15-1.2); Total Protein 7.8 g/dL (6.6-8.7)
[2023-01-12 21:58] LABS: Add Urine Microscopic? NO; Charge for UA Resulting for Rev
[2023-01-12 21:59] LABS: Bilirubin Urine Neg (Negative); Blood Urine Neg (Negative); Glucose Urine UA Norm (Normal); Ketones Urine Negative (Negative); Leukocyte Esterase Urine Negative (Negative); Nitrate Urine Negative (Negative); Protein Urine Neg (Negative); Urine Appearance Clear (CLEAR); Urine Color Colorless (Yellow); Urobilinogen Urine Neg (Negative); pH Urine 7 (5-7)
[2023-01-12 22:00] VITALS: BP 143/80; PULSE 92; O2SAT 96
[2023-01-12 22:03] LABS: Slide Review Slide Review Perform
[2023-01-12 22:30] VITALS: BP 125/70; PULSE 84; O2SAT 96
[2023-01-12 23:00] VITALS: BP 128/72; PULSE 79; O2SAT 95
[2023-01-12 23:30] VITALS: BP 138/72; PULSE 78; O2SAT 96
[2023-01-13] VITALS: BP 141/71; PULSE 81; O2SAT 95
[2023-01-13 00:30] VITALS: BP 120/83; PULSE 80; O2SAT 96
[2023-01-13 01:00] VITALS: BP 138/94; PULSE 83; O2SAT 95
[2023-01-13 01:21] LABS: Adenovirus Not Detected (NOT DETECT); Chlamydia Pneumoniae Not Detected (NOT DETECT); Coronavirus 229E,HKU1,NL63,OC4 Not Detected (NOT DETECT); Human Metapneumovirus Not Detected (NOT DETECT); Human Rhinovirus/Enterovirus Not Detected (NOT DETECT); Influenza A Not Detected (NOT DETECT); Influenza A H1 Not Detected (NOT DETECT); Influenza A H1-2009 Not Detected (NOT DETECT); Influenza A H3 Not Detected (NOT DETECT); Influenza B Not Detected (NOT DETECT); Mycoplasma Pneumoniae Not Detected (NOT DETECT); Parainfluenza Virus Type 1 Not Detected (NOT DETECT); Parainfluenza Virus Type 2 Not Detected (NOT DETECT); Parainfluenza Virus Type 3 Not Detected (NOT DETECT); Parainfluenza Virus Type 4 Not Detected (NOT DETECT); Respiratory Syncytial Virus A Not Detected (NOT DETECT); Respiratory Syncytial Virus B Not Detected (NOT DETECT); SARS-COV-2 Not Detected (NOT DETECT)
[2023-01-13 01:37] VITALS: BP 144/68; PULSE 80; RESP 16; O2SAT 95
== END 2023-01-13 01:39 | disposition home or self-care (01) ==
PROVIDERS: Emergency Provider Emergency Medicine; PCP Electrodiagnostic Medicine
DX: R50.9 Fever, unspecified (principal); M79.604 Pain in right leg; Z79.82 Long term (current) use of aspirin; Z20.822 Contact with and (suspected) exposure to COVID-19
CPT/HCPCS: 36415; 76882; 80053; 81003; 85025; 87635; 93926; 99284

== ENCOUNTER → 2023-01-25 13:34 | Outpatient (BNVA) | payer MEDICARE, SELFPAY | PROVIDERS: PCP Electrodiagnostic Medicine; Visit Provider Nurse Practitioner Family | DX: I10 Essential (primary) hypertension (principal) | CPT/HCPCS: 99213 ==

== ENCOUNTER → 2023-07-04 13:51 | Outpatient (BNVA) | payer MEDICARE, SELFPAY | PROVIDERS: PCP Electrodiagnostic Medicine; Visit Provider Internal Medicine | DX: R07.9 Chest pain, unspecified (principal); R94.39 Abnormal result of other cardiovascular function study; I10 Essential (primary) hypertension | CPT/HCPCS: 99213 ==

== ENCOUNTER 2023-09-08 12:34 | Outpatient (CLI) | payer MEDICARE, SELFPAY ==
--- NOTE | 2023-09-08 13:39 | MM_ITS ---
WS: [id number] LEFT 3D TOMOSYNTHESIS DIGITAL MAMMOGRAPHY WITH CAD CLINICAL INFORMATION: L BREAST PAIN HISTORY: LEFT breast pain. History of hematoma. COMPARISON: 2020 TECHNIQUE: 3 views of the left breast were obtained. FINDINGS: Scattered fibroglandular densities of the left breast. Similar-appearing clustered coarse calcificati ons subareolar LEFT breast. Areas of fat necrosis and oil cysts. This is similar to previous. Ultraso und of this area is pending. ULTRASOUND BREAST LEFT TECHNIQUE: Ultrasound left breast focused area of concern. CLINICAL INFORMATION: L BREAST PAIN FINDINGS: Ultrasound LEFT breast in the area of concern 8-10 o'clock. Again seen are the underlying dense paren chymal calcifications as seen on the mammogram. Otherwise normal underlying parenchymal tissue. No wilkes spicious cystic or solid lesions. No other suspicious findings. MM/[place] [id number] BI-RADS: 2-Benign FOLLOW UP: 1 Year Follow-up Recommend return to annual screening mammography.
--- NOTE | 2023-09-08 14:31 | US_ITS ---
WS: [id number] LEFT 3D TOMOSYNTHESIS DIGITAL MAMMOGRAPHY WITH CAD CLINICAL INFORMATION: L BREAST PAIN HISTORY: LEFT breast pain. History of hematoma. COMPARISON: 2019 TECHNIQUE: 3 views of the left breast were obtained. FINDINGS: Scattered fibroglandular densities of the left breast. Similar-appearing clustered coarse calcificati ons subareolar LEFT breast. Areas of fat necrosis and oil cysts. This is similar to previous. Ultraso und of this area is pending. ULTRASOUND BREAST LEFT TECHNIQUE: Ultrasound left breast focused area of concern. CLINICAL INFORMATION: L BREAST PAIN FINDINGS: Ultrasound LEFT breast in the area of concern 8-10 o'clock. Again seen are the underlying dense paren chymal calcifications as seen on the mammogram. Otherwise normal underlying parenchymal tissue. No wilkes spicious cystic or solid lesions. No other suspicious findings. US/US breast LT limited* [id number] BI-RADS: 2-Benign FOLLOW UP: 1 Year Follow-up Recommend return to annual screening mammography.
== END 2023-09-08 12:35 | disposition home or self-care (01) ==
LOC: RAD 12:35
PROVIDERS: PCP Electrodiagnostic Medicine; Visit Provider Electrodiagnostic Medicine
DX: N64.4 Mastodynia (principal); R92.322 Mammographic fibroglandular density, left breast
CPT/HCPCS: 76642; 77061; G0279

== ENCOUNTER → 2024-07-02 12:57 | Outpatient (BNVA) | payer MEDICARE, SELFPAY | PROVIDERS: PCP Electrodiagnostic Medicine; Visit Provider Internal Medicine | DX: R07.9 Chest pain, unspecified (principal); R94.39 Abnormal result of other cardiovascular function study; I10 Essential (primary) hypertension | CPT/HCPCS: 99213 ==

== ENCOUNTER 2024-11-29 08:06 | Outpatient (CLI) | payer MEDICARE, SELFPAY ==
--- NOTE | 2024-11-29 08:09 | MM_ITS ---
WS: [id number] Bilateral screening 3D tomosynthesis digital mammogram, 11/29/2024 8:10 AM Clinical Data: SCREENING Comparison: 09/07/2023, 11/29/2022, 09/25/2021, 03/07/2020 Findings: No spiculated masses or clustered calcifications are seen. There are no secondary signs of carcinoma. In the lower inner quadrant of the left breast there are numerous calcifications from a fibroadenoma. There is an oil cyst. The breast parenchymal pattern shows fibroglandular tissue. There are lymph nodes in both axilla. MM/MM scr BI tomosynthesis [id number] Impression: Negative bilateral mammogram unchanged. Recommend annual screening mammograms. BIRADS: 2 - Benign. FOLLOW UP: 1 Year Follow-up DENSITY: There are scattered areas of fibroglandular density. The CAD weight yardage checker was used
== END 2024-11-29 08:07 | disposition home or self-care (01) ==
LOC: RAD 08:07
PROVIDERS: PCP Electrodiagnostic Medicine; Visit Provider Electrodiagnostic Medicine
DX: Z12.31 Encounter for screening mammogram for malignant neoplasm of breast (principal); R92.323 Mammographic fibroglandular density, bilateral breasts; R92.1 Mammographic calcification found on diagnostic imaging of breast; R59.0 Localized enlarged lymph nodes; R92.8 Other abnormal and inconclusive findings on diagnostic imaging of breast
CPT/HCPCS: 77063; 77067